=== PATIENT | female | born 1980 | race Caucasian/White ===

== ENCOUNTER 2016-08-20 06:00 | Inpatient (IN) | payer MEDICARE, OTHER ==
--- NOTE | ~2016-08-20 | PN ---
Unit #: [id number] #: [id number] Patient: GRACIE MITCHELL [id number] [place] [address] [id number] I MR#: [id number] NAME: GRACIE MITCHELL ROOM: P202 Age: 36 Sex: F Admission Date: 08/20/2016 : 1980 Attending Physician: Joe Lemus M.D. Admitting Physician: Joe Lemus M.D. Primary Care Physician: Generic Doctor Not In System [facility] PROGRESS NOTES LOCATION [facility], [address], room #202, bed #1. DATE OF PROGRESS NOTE 08/22/16 SUBJECTIVE UPDATE This is a 36-year-old, white female here with ongoing issues of significant bipolar depression and polysubstance dependency related issues from primarily crack cocaine. Patient reports tolerating medication changes well, but, unfortunately, did not sleep well overnight if at all. She reports still being depressed and hopeless with a positive SI, but it is better today in terms of intensity and no clear plan. Patient was less tearful, but was still tearful though, compared to yesterday anyway. No adverse issues from medication changes, as noted. MENTAL STATUS EXAM General appearance is a limited, moderately groomed, obese, white female. Fairly pleasant, cooperative, and responsive to interview process. Good eye contact. Mild psychomotor agitation noted, especially in hands. Speech was clear and coherent. Mood was depressed, but "better today" with a less labile affect. Thought process and content were fairly organized and linear. No overt evident psychosis. Positive for SI, but no plan. Less intense, less severe, and less frequent. No HI. No psychosis. Patient's memory was grossly intact. Associations were normal. Cognitive function was at baseline. Insight and judgment was improving. The patient was alert and oriented x4. RECOMMENDATIONS Will continue patient's admission for safety and stabilization for ongoing issues with bipolar depression as well as comorbid substance abuse problems. Patient seems to be tolerating medication changes well, but will add trazodone 200 mg at bedtime to help with sleep. Patient has been on this medication and at this dose before with a positive response. Patient being evaluated for possible residential program disposition from a addiction social worker aspect upon completion of program. At this point, care is ongoing and progress is being maintained at the moment. Dictated by... Joe Lemus M.D. Unit #: [id number] #: [id number] Patient: GRACIE MITCHELL RONEL/jim TD: 08/23/2016 09:04 JOB #: [id number] [facility] PROGRESS NOTES Page 1 of 1 X Joe Lemus MD X PROGRESS NOTE
--- NOTE | ~2016-08-20 | PA ---
Unit #: [id number] #: [id number] Patient: GRACIE MITCHELL [id number] [place] [address] [id number] I MR#: [id number] NAME: GRACIE MITCHELL ROOM: P202 Age: 36 Sex: F Admission Date: 08/20/2016 : 1980 Date of Assessment: Attending Physician: Joe Lemus M.D. Admitting Physician: Joe Lemus M.D. PSYCHIATRIC ASSESSMENT LOCATION [facility], [address] [place] [address], room #202, bed #1. INFORMANT The patient and chart, both seem reliable. CHIEF COMPLAINT "I'm not sure what's wrong with me." HISTORY OF PRESENT ILLNESS This is a 36-year-old, white female, with reported history of bipolar disorder as well as significant comorbid chemical dependency issues including crack cocaine most recently. The patient reports she has been using drugs or substances since she was a teenager and apparently had 3 years of dependence of gambling addiction mixed in with that. The patient has been reporting feeling agitated, depressed, upset, labile, thoughts about dying and killing herself to get over with. The patient seems very hopeless and helpless about the situation. She has been seeing a psychiatrist in [place] Dr. Hendricks, for which she has not been completely forthcoming about her addiction issues. The patient is tearful and still continues to voice suicidal thoughts this time, but no clear plan. PAST PSYCHIATRIC HISTORY History of overdose when she was a teenager. It was also her last psychiatric admission. Seen Dr. Yepez with mood issues as noted above. No history of any psychosis. No issues with HI. FAMILY HISTORY Widespread chemical dependency and psychiatric issues in multiple family members. SOCIAL HISTORY The patient is engaged and has 4 children. Has a 2-year college degree in medical record keeping. Fair support network with family. MEDICAL ISSUES Nothing contributory beyond asthma. MEDICATION HISTORY Pristiq 100 mg daily, Abilify 5 mg at bedtime, Neurontin 800 mg four times a day, Proventil HFA four puffs as needed every 4 hours, standard p.r.n.'s. Unit #: [id number] #: [id number] Patient: BROUSE,GRACIE ANNAMARIA ALLERGIES Include no actual drug allergies, but has had multiple side effects to GERD related medication and Valium, but no true drug allergies. SUBSTANCE ABUSE HISTORY The patient as noted above. Most recent drug of choice is crack cocaine, but has also used amphetamines, heroin, opiates in general. Nothing else. No issues of seizures or withdrawal complications in the past per patient. MENTAL STATUS EXAMINATION General appearance; this is an obese white female, with a pink colored hair. Moderate eye contact. Speech was clear and coherent. Mood was depressed with a labile affect. Thought process and content were fairly organized with active SI. No clear plan. No HI. No psychosis. The patient's memory was grossly intact. Associations were normal. Cognitive function is at baseline. Alert and oriented x4. Insight and judgment are poor. ASSETS AND LIABILITIES Include support through family and significant other. College educated. Liabilities include continued substance abuse, lack of honesty with people who is supporting her life. ADMITTING DIAGNOSES 1. Bipolar disorder, depressed phase, severe without psychotic features. 2. Cocaine dependency. 3. Asthma. PSYCHIATRIC PLAN Psychiatric plan will be to continue the patient's admission for safety and stabilization, in a controlled manner for her depression and suicidal ideation. Monitor for any complications from drug use. The patient will have her Pristiq decreased to 50 mg, if this is concerned that is agitating her and will increase the Abilify to 10 mg for more appropriate mood stabilizing dose. The patient also was provided with Vistaril 50 mg every 6 hours as needed for breakthrough anxiety. Treatment goal will be resolution of symptoms in a safe controlled environment with discharge planning most likely require her returning to her home area in [place] following up with Dr. Yepez and community resources there. ESTIMATED LENGTH OF STAY Approximately 5 days. Dictated by... Joe Lemus M.D. RONEL/lopez TD: 08/22/2016 05:43 JOB #: [id number] Unit #: [id number] #: [id number] Patient: GRACIE MITCHELL PSYCHIATRIC ASSESSMENT Page 1 of 1 X Joe Lemus MD PSYCHIATRIC ASSESSMENT
--- NOTE | ~2016-08-20 | CO ---
Unit #: [id number] #: [id number] Patient: HAFSA MITCHELL [id number] [place] [address] [id number] I MR#: [id number] NAME: HAFSA MITCHELL ROOM: P202 Age: 36 Sex: F Admission Date: 08/20/2016 : 1980 Attending Physician: Joe Lemus M.D. Primary Care Physician: Generic Doctor Not In System Consultation Date: 08/23/2016 CONSULTATION REPORT SUBJECTIVE Hafsa is a 36-year-old who complains of low back pain after admission. She denies any injury. She is detoxing cocaine. OBJECTIVE GENERAL: Alert, well nourished, in no apparent distress. VITAL SIGNS: Blood pressure 120/70, heart rate 80, respirations 16, temperature 98.6. EXTREMITIES: No evidence of cyanosis, clubbing, or edema. Moves all without focal deficit. NEUROLOGIC: DTRs 2+. Muscle strength 5/5. Gait normal. ASSESSMENT Low back pain. PLAN Ibuprofen as ordered by psychiatry. Dictated by... Kelli Estrada P.A.-C. for En Chavez/lopez TD: 08/24/2016 03:35 JOB #: [id number] CONSULTATION REPORT Page 1 of 1 X Kelli Estrada CONSULTATION REPORT
--- NOTE | ~2016-08-20 | HP ---
Unit #: [id number] #: [id number] Patient: HAFSA MITCHELL [id number] [place] [address] [id number] I MR#: [id number] NAME: HAFSA MITCHELL ROOM: P202 Age: 36 Sex: F Admission Date: 08/20/2016 : 1980 Attending Physician: Joe Leums M.D. Admitting Physician: Joe Lemus M.D. Primary Care Physician: Generic Doctor Not In System HISTORY AND PHYSICAL HISTORY OF PRESENT ILLNESS Hafsa is a 36 year old admitted to [address] [place] [address] because of her drug use. She uses cocaine. PAST MEDICAL HISTORY 1. History of illicit substance abuse. 2. COPD. 3. Obesity. 4. History of tethered cord. PAST SURGICAL HISTORY 1. Tethered cord release. 2. Cholecystectomy. 3. Appendectomy. 4. T and A. 5. Hysterectomy. 6. Bladder repair. 7. Abdominal hernia repair. 8. Roderick fundoplasty. ALLERGIES No known drug allergies. SOCIAL HISTORY Smokes one pack per day. Denies alcohol. Admits to a history of illicit substance abuse to include crack cocaine, IV heroin, and methamphetamine. FAMILY HISTORY Medically noncontributory. REVIEW OF SYSTEMS CONSTITUTIONAL: No fever or chills. HEENT: Denies any sore throat, ear pain or runny nose. CARDIOVASCULAR: Denies chest pain, irregular heart rhythm or palpitations. CHEST: Denies shortness of breath or cough. No hemoptysis. GASTROINTESTINAL: Denies nausea, vomiting, diarrhea or chronic constipation. ENDOCRINE: Denies history of increased thirst or urination. No recent significant weight loss or gain. GENITOURINARY: Denies dysuria, frequency, or hematuria. SKIN: Denies any rashes. HEMATOLOGIC: Denies history of increased bleeding or bruising. MUSCULOSKELETAL: Denies any hot, swollen joints. No generalized muscle Unit #: [id number] #: [id number] Patient: HAFSA MITCHELL pain. NEUROLOGIC: Denies problems with vision or speech. No frequent, severe headaches. No numbness, tingling or weakness in any extremities. Denies loss of bladder or bowel control. CURRENT MEDICATIONS 1. Pristiq 100 mg q. day. 2. Abilify 5 mg q.h.s. 3. Neurontin 800 mg q.i.d. 4. Proventil inhaler p.r.n. 5. Milk of Magnesia p.r.n. 6. Maalox p.r.n. 7. Tylenol p.r.n. 8. Nicotine patch 21 mg q. day. PHYSICAL EXAMINATION GENERAL: Alert, well nourished. No apparent distress. VITAL SIGNS: Blood pressure 144/82, heart rate 100, respirations 16, and temperature 98.6. WEIGHT: 275. HEIGHT: 5 feet 3 inches. SKIN: Warm and dry without rash or lesion. HEENT: Normocephalic. TMs not viewed. Oral and nasal passages clear. Conjunctivae clear. PERRLA. EOMs intact. NECK: Supple without lymphadenopathy or thyromegaly. HEART: Regular rate and rhythm without murmur. LUNGS: Clear. ABDOMEN: Soft, nontender. : Not done. EXTREMITIES: No evidence of cyanosis, clubbing or edema. Moves all without focal deficit. NEUROLOGICAL: Grossly within normal limits. Cranial Nerves: II: Visual rousseau are intact. III, IV AND : Extraocular movements are intact. Pupils are equal, round and reactive to light. V: Facial sensation is grossly normal. VII: Facial movements and expression are normal. VIII: Auditory acuity grossly intact. IX, X: Uvula is midline. Phonation is normal. XI: Patient shrugs shoulders and turns head normally. XII: Tongue protrudes in the midline. Sensory and Motor Function: Sensory and motor sensation is grossly normal. Motor: moves all extremities well. Coordination: Gait is normal. Deep Tendon Reflexes: Intact. IMPRESSION Psychiatric admission. RECOMMENDATIONS PSYCHIATRIC: Per psychiatrist. MEDICAL: I see no contraindication to participate in this facility's activities. MEDICAL PROGNOSIS Good. MEDICAL CONDITION Stable. Unit #: [id number] #: [id number] Patient: HAFSA MITCHELL Dictated by... Kelli Estrada P.A.-C. for En Chavez/aaron TD: 08/21/2016 11:03 JOB #: [id number] HISTORY AND PHYSICAL Page 1 of 1 X Kelli Estrada HISTORY AND PHYSICAL
--- NOTE | ~2016-08-20 | PN ---
Unit #: [id number] #: [id number] Patient: GRACIE MITCHELL [id number] [facility] [address] [place] [address] [id number] I MR#: [id number] NAME: GRACIE MITCHELL ROOM: P202 Age: 36 Sex: F Admission Date: 08/20/2016 : 1980 Attending Physician: Joe Lemus M.D. Admitting Physician: Joe Lemus M.D. Primary Care Physician: Generic Doctor Not In System [facility] PROGRESS NOTES DATE 08/26/2016 DISCUSSION SUBJECTIVE UPDATE This is a 36-year-old white female, who is here with ongoing issues or bipolar-related depression. The patient seems somewhat more psychomotor agitated today and labile in her mood. She was tearful again. The patient is feeling very apprehensive about possible disposition in the morning and the possibility of having to be on a bus. She is feeling her "PTSD" acting up over the fear of that. The patient was given supportive therapy, as well as some CBT, to help redirect her thought processes for which she was appreciative. The patient is tolerating medication changes well but still didn't sleep well last night but still unclear for residual Abilify in the system is playing a role in that regardless. She tolerated it well this morning without any sedation issues, and overall SI still improved, but the mood is somewhat decompensated today. MENTAL STATUS EXAMINATION General appearance is a moderately groomed obese white female, with colored hair, fairly cooperative, responsive to interview process, mild psychomotor agitation noted. Speech was clear and coherent. Mood was more labile today, anxious, with a labile affect. Thought process and content were fairly organized, and linear, still goal-oriented with no SI today, no HI. The patient's memory is grossly intact. Associations were normal. Cognitive functioning was intact. Alert and oriented x4. Insight and judgment is improving. RECOMMENDATIONS We will continue the patient's admission for safety and stabilization for ongoing issues with her depression, patient having a mild decompensation episode today. We will continue to monitor and leave medications in place as they are with plan for possible disposition tomorrow for substance abuse treatment residential, will monitor for any further progress and/or decompensation that might be in play. Dictated by... Joe Lemus M.D. SB/rose Unit #: [id number] #: [id number] Patient: GRACIE MITCHELL TD: 08/27/2016 06:48 JOB #: [id number] [facility] PROGRESS NOTES Page 1 of 1 X Joe Lemus MD X PROGRESS NOTE
--- NOTE | ~2016-08-20 | DS ---
Unit #: [id number] #: [id number] Patient: GRACIE MITCHELL [id number] [facility] [address] [place] [address] [id number] I MR#: [id number] NAME: GRACIE MITCHELL ROOM: P202 Age: 36 Sex: F Admission Date: 08/20/2016 : 1980 Discharge Date: 08/27/2016 Attending Physician: Joe Lemus M.D. Primary Care Physician: Generic Doctor Not In System DISCHARGE SUMMARY REASON FOR ADMISSION Bipolar related depression severe without psychotic features and suicidal ideation as well as comorbid cocaine dependency. DIAGNOSTIC STUDIES PERTINENT LABORATORY DATA: The patient had routine lab work that was completed prior to this admission in [facility] as she was transferred from so no labs were done here. HOSPITAL COURSE The patient was admitted for safety and stabilization for ongoing issues with her bipolar disorder with depression, suicidal ideations and comorbid cocaine dependency. The patient was noted to be very depressed, hopeless, extremely emotionally labile upon admission with thoughts about wanting to be better off . The patient denied any overt plan while in the hospital but she was feeling very at risk and unsafe with herself. The patient was noticed to be tearful through most of the hospitalization but has improved prior to discharge. The patient was maintained initially Pristiq but was decreased to 50 mg from 100 and Abilify was titrated up to 15 mg for more appropriate mood stabilization treatment. The patient went to groups and activities as directed and tolerated the medication changes as well as the interactions with groups and activities. Overall the patient's Abilify of note was changed from the evening to the morning as there was some concern had an activating component as we went up on the dose and she had Trazodone at bedtime that was increased to 300 mg. The remained of the patient's home medications were maintained at their current doses with the patient be provided with a small dose of Xanaflex per the nurse practitioner medical provider here who saw her for chronic pain issues. Overall the patient was at the time of discharge was improved. She was much more goal future oriented which she was denying any SI or HI. She was focused on going to chemical dependency residential treatment at [facility] and was goal focused on that. The patient was tolerating medication changes as well with a more positive mood and outlook. No active SI again. No thoughts about harming herself or anybody else. At time of discharge there was no acute evidence of detox have any kind of symptoms therefore the patient was doing better overall and so the patient was appropriate for disposition to the residential treatment facility chemical dependence facility [facility]. The patient was in agreement. DISCHARGE DIAGNOSES 1. Bipolar disorder depressed mood severe without psychotic features. Unit #: [id number] #: [id number] Patient: GRACIE MITCHELL 2. Cocaine dependency. 3. Asthma. 4. Chronic pain issues. DISCHARGE INSTRUCTIONS For the patient to be transported to [facility] CD Treatment [facility] as soon as possible today. DISCHARGE MEDICATIONS 1. Abilify 15 mg during the day for mood stabilization 2. Trazodone 300 mg at bedtime for sleep 3. Zanaflex 4 mg at bedtime for pain issues 4. Ibuprofen up to 800 mg every six hours as needed for breakthrough pain 5. Pristiq 50 mg daily for depression 6. Vistaril 50 mg every six hours as needed for breakthrough anxiety 7. Neurontin 800 mg four times a day for pain 8. Proventil Hfa two puffs every four hours as needed for breakthrough asthma issues DISCHARGE CONDITION Improved. PROGNOSIS Moderate given the patient's history of repetitive issues, substance abuse. Diet is regular. Activity as tolerated with sobriety encouraged. Dictated by... Joe Lemus M.D. RONEL/richard TD: 08/27/2016 20:56 JOB #: [id number] DISCHARGE SUMMARY Page 1 of 1 X Joe Lemus MD X DISCHARGE SUMMARY
--- NOTE | ~2016-08-20 | PN ---
Unit #: [id number] #: [id number] Patient: GRACIE MITCHELL [id number] [place] [address] [id number] I MR#: [id number] NAME: GRACIE MITCHELL ROOM: P202 Age: 36 Sex: F Admission Date: 08/20/2016 : 1980 Attending Physician: Joe Lemus M.D. Admitting Physician: Joe Lemus M.D. Primary Care Physician: Generic Doctor Not In System [facility] PROGRESS NOTES DATE OF SERVICE: 08/25/2016 LOCATION [facility], [address] [place] [address] room #202, bed #1. SUBJECTIVE This is a 36-year-old, white female, who is here with ongoing issues of significant bipolar related depression with suicidal ideation. The patient reports feeling better today with the increase in the Abilify overnight. Unfortunately, it did create an agitation effect in which it caused her to get decreased levels of sleep. She got barely 3 hours of sleep even with the increased trazodone. Overall, she said her SI is better today, it is much less intense, she was much more abated for the 1st time, she was not tearful. Overall she does feel better, but does feel tired since her sleep has been disruptive. The patient is still goal-focused on CD treatment upon discharge from here. MENTAL STATUS EXAM General appearance, moderately groomed female, obese, colored hair, better eye contact. No tearfulness or psychomotor agitation today. Speech was clear and coherent, normal prosody. Mood was "better." Less depressed, with a less labile affect. Thought process and content are grossly organized and linear. No overt evident psychosis. No HI. SI is there but resolving, no plan. The patient's memory was grossly intact. Associations were normal. Cognitive function was at baseline. Alert and oriented x4. Insight and judgment are improving. Association is normal. RECOMMENDATIONS We will continue the patient's admission for safety and stabilization for ongoing issues with mood and suicidal ideation, as well as detox. Detox symptoms seem to be very well contained at this point, and we will change the patient's Abilify to start in the morning, so she will skip tonight's dose and hope that will help with better sleep. Still working toward disposition plan needs with care ongoing. Dictated by... En Priest/lopez TD: 08/25/2016 13:01 Unit #: [id number] #: [id number] Patient: GRACIE MITCHELL JOB #: [id number] [facility] PROGRESS NOTES Page 1 of 1 X Joe Lemus MD X PROGRESS NOTE
--- NOTE | ~2016-08-20 | PN ---
Unit #: [id number] #: [id number] Patient: GRACIE MITCHELL [id number] [facility] [address] [place] [address] [id number] I MR#: [id number] NAME: GRACIE MITCHELL ROOM: P202 Age: 36 Sex: F Admission Date: 08/20/2016 : 1980 Attending Physician: Joe Lemus M.D. Admitting Physician: Joe Lemus M.D. Primary Care Physician: Suzanne Doctor Not In System [facility] PROGRESS NOTES DATE 08/24/2016 SUBJECTIVE UPDATE This is a 36-year-old female here with ongoing issues with bipolar related depression with suicidal ideation. Patient continuing to report issues with anxiety and depression. Seems somewhat more psychomotor agitated today and labile in her mood, little bit more tearfulness noted yesterday. She reported her sleep was decreased again last night. She is continuing to try to stay focused on her goal for chemical dependency residential treatment if at all possible but is still feeling very unstable. SI is still present but no clear plan today. MENTAL STATUS EXAMINATION General appearance is a moderately groomed white female, obese with colored hair. Good eye contact today. Mild psychomotor agitation noted. Some minimal tearfulness. Speech was clear and coherent. Mood was anxious, depressed with a labile affect. Thought process and content were grossly organized and linear. No overt evidence of psychosis. Positive for SI but no clear plan. No HI. Patient's memory was grossly intact. Associations were normal. Cognitive functioning was at baseline. She was alert and oriented times four. Insight and judgement is limited. RECOMMENDATIONS Will continue patient's admission for ongoing issues with significant depression, mood lability and suicidal ideation. Overall, patient still and will need to increase her Abilify further to 15 mg at night as well as 300 mg of trazodone to help with her sleep and mood. Overall, patient seems to be tolerating medication change as well and showing progress but further stabilization is needed. Still awaiting review for possible residential treatment. Dictated by... En Priest/sade TD: 08/24/2016 23:04 JOB #: [id number] Unit #: [id number] #: [id number] Patient: GRACIE MITCHELL PROGRESS NOTES Page 1 of 1 X Joe Lemus MD PROGRESS NOTE
--- NOTE | ~2016-08-20 | PN ---
Unit #: [id number] #: [id number] Patient: GRACIE MITCHELL [id number] [facility] [address] [place] [address] [id number] MR#: [id number] NAME: GRACIE MITCHELL ROOM: P202 Age: 36 Sex: F Admission Date: 08/20/2016 : 1980 Attending Physician: Joe Lemus M.D. Admitting Physician: Joe Lemus M.D. Primary Care Physician: Generic Doctor Not In System [facility] PROGRESS NOTES DATE 08/23/2016 SUBJECTIVE UPDATE This is a 36-year-old white female who is here with ongoing issues with significant bipolar related depression and comorbid substance abuse. Patient is reporting overall mood is somewhat better today, still very depressed and blunted in her affect but much less tearful. She did sleep better last night with the onset of the trazodone but is complaining of her back hurting and we will request a medical consult for that. In the meantime, will switch her from Tylenol over to ibuprofen. SI present but improving. Patient somewhat less hopeless today. Tolerating medication changes better. MENTAL STATUS EXAMINATION General appearance is a moderately groomed obese white female appears somewhat older than stated age, colored hair. Good eye contact. Speech was clear and coherent. Mood was depressed, anxious, improving with blunted affect, less labile. Thought processes and content were grossly organized and linear. No overt evidence of psychosis. Positive for SI but less intense and less frequent but no clear plan. No hallucinations, no psychosis, no HI. Patient's memory was grossly intact. Associations were normal. Cognitive functioning was at baseline. Alert and oriented times four. Insight and judgement is limited but improving. RECOMMENDATIONS Will continue patient's admission for safety and stabilization for ongoing issues with depression with bipolar nature with suicidal ideation and comorbid substance abuse. Detox is progressing well without any acute symptoms or any acute complications. Some minor fatigue, aches and pains and headache but otherwise normal. Patient tolerating medication changes well but will make aforementioned changes for her pain issues and have a med consult for her back pain. Patient tolerated these medications and may consider increasing Abilify in the morning if patient continues to tolerate it and benefit from the mood stabilization effect. Patient ongoing for evaluation for possible residential CD treatment. Dictated by... Joe Lemus M.D. Unit #: [id number] #: [id number] Patient: GRACIE MITCHELL RONEL/sade TD: 08/23/2016 22:27 JOB #: [id number] [facility] PROGRESS NOTES Page 1 of 1 X Joe Lemus MD PROGRESS NOTE
== END 2016-08-27 10:50 | disposition home or self-care (01) | DRG 885 ==
LOC: P2S 11:18
PROC: HZ2ZZZZ Detoxification Services for Substance Abuse Treatment (ICD-10-PCS; principal; 2016-08-20)
DX: F31.4 Bipolar disorder, current episode depressed, severe, without psychotic features (principal); F14.20 Cocaine dependence, uncomplicated; J45.909 Unspecified asthma, uncomplicated; J44.9 Chronic obstructive pulmonary disease, unspecified; E66.9 Obesity, unspecified; M54.5 Low back pain